=== PATIENT | male | born 1940 | race Caucasian/White ===

== ENCOUNTER 2020-05-06 14:53 | Inpatient (IN) ==
[2020-05-06] MEDS ORDERED: Naloxone 0.4 MG/ML INJ IVP PRN (16:56)
[2020-05-06] MEDS ORDERED: *HR* Promethazine 25 MG/ML VIAL IVP PRN (16:56)
[2020-05-06] MEDS: Dexamethasone 4 MG/ML VIAL IVP SCH (17:26)
[2020-05-06] MEDS ORDERED: Morphine Sulfate 2 MG/ML SYRINGE IVP PRN (17:43)
[2020-05-06 19:14] LABS: VBG HCO3 24 mEq/L (21-27); VBG PCO2 41 mmHg (41-51); VBG PH 7.39 pH Units (7.32-7.42); VBG PO2 138 mmHg (25-50)
[2020-05-06] MEDS ORDERED: Isovue-370 500 ML BOTTLE IVP ONE (19:20)
[2020-05-06] MEDS: Ipratropium 1 PUFF INHALER IH SCH ×2 (19:51→23:39)
[2020-05-06] MEDS: cloNIDine HCL 0.1 MG TABLET PO SCH (20:17)
[2020-05-06] MEDS: *HR* Heparin 5,000 UNIT/ML VIAL SQ SCH (20:17)
[2020-05-07] MEDS: cloNIDine HCL 0.1 MG TABLET PO SCH ×4 (01:03→19:39)
[2020-05-07] MEDS: *HR* Heparin 5,000 UNIT/ML VIAL SQ SCH ×4 (01:03→21:29)
[2020-05-07 01:51] LABS: Hemoglobin 11.1 g/dL (12.9-16.9); Mean Corpuscular Hemoglobin 23.1 pg (28.0-33.3); Mean Corpuscular Volume 77.1 fL (83.0-100.0); Mean Platelet Volume 10.6 fL (9.4-12.4); Platelet Count 268 K/mcL (140-400); Red Cell Distribution Width 20.9 % (11.5-14.5); White Blood Count 12.3 K/mcL (4.3-11.1)
[2020-05-07 02:01] LABS: Calcium 8.1 mg/dL (8.6-10.3); Potassium 4.3 mEq/L (3.5-5.1)
[2020-05-07] MEDS: Ipratropium 1 PUFF INHALER IH SCH ×6 (03:46→23:46)
[2020-05-07] MEDS: cefTRIAXone 2,000 MG in Water for inj. (sterile) 20 ML IVP SCH (07:15)
[2020-05-07] MEDS: Azithromycin 500 MG in 0.9 % Sodium Chloride 250 ML IVPB SCH (07:15)
[2020-05-07] MEDS: amLODIPine 5 MG TABLET PO SCH (07:16)
[2020-05-07] MEDS: hydroCHLOROthiazide 25 MG TABLET PO SCH (07:16)
[2020-05-07] MEDS: Finasteride 5 MG TABLET PO SCH (07:16)
[2020-05-07] MEDS: Dexamethasone 4 MG/ML VIAL IVP SCH (07:16)
[2020-05-07] MEDS ORDERED: CLONIDINE HCL 0.1 MG PO SCH (09:00)
[2020-05-07] MEDS ORDERED: polyethylene glycoL 3350 17 GM POWD.PACK PO PRN (16:44)
[2020-05-07] MEDS ORDERED: NON-FORMULARY MEDICATION 1 EACH EACH (Amlodipine Besylate 10 MG) PO SCH (16:45)
[2020-05-07] MEDS: Metoprolol XL (24 HR) Succ 25 MG TAB.ER.24H PO SCH (17:09)
[2020-05-07] MEDS: Isosorbide MONOnitrate (24 HR) 30 MG TAB.ER.24H PO SCH (17:09)
[2020-05-08] MEDS: Ipratropium 1 PUFF INHALER IH SCH ×4 (03:38→15:25)
[2020-05-08] MEDS ORDERED: Melatonin 3 MG TABLET PO ONE (03:49)
[2020-05-08] MEDS: *HR* Heparin 5,000 UNIT/ML VIAL SQ SCH (05:55)
[2020-05-08 06:42] LABS: Hemoglobin 10.7 g/dL (12.9-16.9); Mean Corpuscular HGB Conc 30.6 g/dL (31.6-35.5); Mean Corpuscular Hemoglobin 23.1 pg (28.0-33.3); Mean Corpuscular Volume 75.6 fL (83.0-100.0); Mean Platelet Volume 9.7 fL (9.4-12.4); Platelet Count 263 K/mcL (140-400); Red Blood Count 4.63 M/mcL (4.19-5.50); Red Cell Distribution Width 20.6 % (11.5-14.5)
[2020-05-08 07:02] LABS: Potassium 3.7 mEq/L (3.5-5.1)
[2020-05-08] MEDS: amLODIPine 5 MG TABLET PO SCH (09:55)
[2020-05-08] MEDS: Metoprolol XL (24 HR) Succ 25 MG TAB.ER.24H PO SCH (09:55)
[2020-05-08] MEDS: cloNIDine HCL 0.1 MG TABLET PO SCH (09:55)
[2020-05-08] MEDS: Finasteride 5 MG TABLET PO SCH (09:56)
[2020-05-08] MEDS: hydroCHLOROthiazide 25 MG TABLET PO SCH (09:56)
[2020-05-08] MEDS: Isosorbide MONOnitrate (24 HR) 30 MG TAB.ER.24H PO SCH (09:56)
[2020-05-08] MEDS: Dexamethasone 4 MG/ML VIAL IVP SCH (09:57)
[2020-05-08] MEDS: cefTRIAXone 2,000 MG in Water for inj. (sterile) 20 ML IVP SCH (09:57)
[2020-05-08] MEDS: Azithromycin 500 MG in 0.9 % Sodium Chloride 250 ML IVPB SCH (09:59)
[2020-05-08 16:56] VITALS: BP 145/63
[2020-05-09] MEDS ORDERED: cloNIDine HCL 0.1 MG TABLET PO SCH (09:00)
[2020-05-09] MEDS ORDERED: Azithromycin 250 MG TABLET PO SCH (09:00)
== END 2020-05-08 16:55 | disposition home or self-care (01) | DRG 193 ==
LOC: 2NENU
PROVIDERS: ADMIT Student in an Organized Health Care Education/Training Program; ATTEND Student in an Organized Health Care Education/Training Program